=== PATIENT | female | born 1925 | race Caucasian/White ===

== ENCOUNTER 2017-05-25 10:30 | Outpatient (CLI) | payer MEDICARE ==
--- NOTE | 2017-05-25 12:37 | RAD ---
PA AND LATERAL CHEST: INDICATIONS: Chest pain. COMPARISON: Prior exam dated 02/07/2011. FINDINGS: There is stable severe emphysema. A dual-lead pacemaker is unchanged. No pleural effusion or pneumo thorax is evident. No definite acute osseous abnormality is noted. There is diffuse osteopenia. IMPRESSION: Stable exam. No definite acute cardiopulmonary abnormality. POS: [facility]
--- NOTE | 2017-05-25 14:46 | RAD ---
AIR CONTRAST UPPER GI: History: Abdominal pain. FINDINGS: Swallowing mechanism of the esophagus appear normal. No evidence of diaphragmatic hernia. No reflux d emonstrated when the patient is placed recumbent. Gastric mucosa appears normal. Duodenal bulb appears normal. There is a large duodenal diverticulum involving the third portion of the duodenum. This diverticulum measures approximately 4 cm. Proximal jejunum appears unremarkable. IMPRESSION: 1. Duodenum diverticulum. 2. Upper GI is otherwise unremarkable. POS: [facility]
== END 2017-05-25 10:31 | disposition home or self-care (01) ==
LOC: RAD 10:30
PROVIDERS: ATTEND Internal Medicine
DX: R10.84 Generalized abdominal pain (principal); K57.10 Diverticulosis of small intestine without perforation or abscess without bleeding
CPT/HCPCS: 71046; 74247